=== PATIENT | male | born 1955 ===

== ENCOUNTER → 2024-08-27 | Day surgery (SDC) | payer OTHER ==
[~2024-08-27] VITALS: Ht 190.5 cm; Wt 120.2 kg
[2024-08-27] VITALS (8 sets, daily range): BP systolic 109–154; BP diastolic 70–84
[~2024-08-27] MED LIST: ACETAMINOPHEN 100 ML IV ONE; BUPIVACAINE 0.5% IV ONE; Dexamethasone Sodium Phospha 4 MG/ML VIAL IV ONE; Ketamine Hydrochloride 50 MG/5 ML SYRINGE IV ONE; Ketorolac Tromethamine 30 MG/ML VIAL IV ONE; Lactated Ringer's Solution 1,000 ML IV ONE; Lidocaine Hydrochloride 30 ML VIAL ONE; Lidocaine Hydrochloride 5 ML VIAL IV ONE; Midazolam Hydrochloride 2 MG/2 ML VIAL IV ONE; Ondansetron Hydrochloride 4 MG/2 ML VIAL IV ONE; PROPOFOL 200 MG/20 ML VIAL IV ONE; Ropivacaine Hydrochloride 5 MG/ML 20 ML AMP IJ ONE; SEVOFLURANE 250 ML BOT INH ONE; TRAMADOL HCL50 MG PO; TYLENOL EXTRA500 M2 PO; VIBRAMYCIN100 MG PO; Vancomycin Hydrochloride 1,000 MG VIAL ONE; XARELTO10 MG PO; ceFAZolin sodium 2GM/20ML IV ONE; ceFAZolin sodium/sodium chlor 20 ML IV ONE; fentaNYL CITRATE 100 MCG/2 ML VIAL IV ONE
[2024-08-28 11:07] LABS: ACID FAST SPEC PROCESSING Tissue Grinding (.)
[2024-08-28 11:07] LABS: ACID FAST SPEC PROCESSING Tissue Grinding (.)
== END | disposition home or self-care (01) ==
LOC: SDC 08-22 08:45
PROVIDERS: ATTEND Podiatrist
DX: S92.252A Displaced fracture of navicular [scaphoid] of left foot, initial encounter for closed fracture (principal); M62.462 Contracture of muscle, left lower leg; Z79.899 Other long term (current) drug therapy; X58.XXXA Exposure to other specified factors, initial encounter; Y93.89 Activity, other specified; Y92.89 Other specified places as the place of occurrence of the external cause; Y99.8 Other external cause status